=== PATIENT | male | born 1955 | race Caucasian/White ===

== ENCOUNTER 2024-03-31 15:46 | Emergency (ER) | payer MEDICARE, MEDICAID ==
[~2024-03-31] VITALS: Ht 175.3 cm; Wt 131.0 kg
[2024-03-31 15:49] VITALS: BP 128/78; PULSE 98; RESP 16; TEMP 36.5; O2SAT 98
[2024-03-31 18:20] LABS: BASOPHILS % 0.7 % (0.0-2.0); EOSINOPHILS % 2.7 % (0.0-5.0); HEMATOCRIT. 46.5 % (42.0-52.0); HEMOGLOBIN. 15.4 g/dL (14.0-18.0); LYMPHOCYTES % 20.2 % (20.0-50.0); MEAN CORPUSCULAR HEMOGLOBIN 30.1 pg (28.0-32.0); MEAN CORPUSCULAR HGB CONC 33.2 g/dL (31.0-37.0); MEAN CORPUSCULAR VOLUME 90.7 fL (80.0-94.0); MEAN PLATELET VOLUME 9.7 fl (7.4-10.4); MONOCYTES % 9.9 % (2.0-8.0); NEUTROPHILS % 66.5 % (40.0-76.0); PLATELET 260 x1000/uL (130-400); RED BLOOD CELL COUNT 5.12 mill/uL (4.7-6.1); RED CELL DISTRIBUTION WIDTH 14.6 % (11.6-14.6); WHITE BLOOD COUNT 9.9 x1000/uL (4.5-11.0)
[2024-03-31 18:30] LABS: CHLORIDE 98 mEq/L (98-107); POTASSIUM 4.1 mEq/L (3.5-5.1); SODIUM 132 mEq/L (136-145)
[2024-03-31 18:31] LABS: CARBON DIOXIDE 22 mEq/L (21-32)
[2024-03-31 18:36] LABS: CREATININE 2.3 mg/dL (0.6-1.3); GLUCOSE 131 mg/dL (70-105); UREA NITROGEN BLOOD 34 mg/dL (9-23)
[2024-03-31 18:37] LABS: TROPONIN I HIGH SENSITIVITY 7 ng/L (3.0-53)
[2024-03-31 21:41] LABS: ALANINE AMINOTRANSFERASE 18 IU/L (10-49); TROPONIN I HIGH SENSITIVITY 6 ng/L (3.0-53)
[2024-03-31 21:42] LABS: ALBUMIN 3.7 g/dL (3.2-4.8); ASPARTATE AMINOTRANSFERASE 25 IU/L (<34); BILIRUBIN DIRECT 0.6 mg/dL (<=3.0); BILIRUBIN TOTAL 1.7 mg/dL (0.1-1.0); PROTEIN TOTAL 6.6 g/dL (6.0-8.3)
== END 2024-03-31 21:02 | disposition left against medical advice (07) ==
LOC: ER 15:46
DX: R05.9 Cough, unspecified (principal); R06.02 Shortness of breath; I10 Essential (primary) hypertension; E11.9 Type 2 diabetes mellitus without complications; Z53.21 Procedure and treatment not carried out due to patient leaving prior to being seen by health care provider
CPT/HCPCS: 36415; 71045; 80048; 80076; 84443; 84484; 85025; 85379; 93005